=== PATIENT | male | born 1945 | race Caucasian/White ===

== ENCOUNTER 2016-08-13 13:12 | Outpatient (CLI) | payer MEDICARE, OTHER ==
--- NOTE | 2016-08-13 14:42 | Mammography Report ---
Bilateral diagnostic mammogram and targeted left breast ultrasound. History: Palpable left breast mass approximately one week after trauma to the left breast. Findings: There is moderate fibroglandular tissue bilaterally. In the subareolar left breast, there is an ovoid shaped circumscribed density which measures 2.5 cm in maximum dimension. There no suspicious microcalcifications. Sonographic evaluation of this area demonstrates a complex ovoid shaped mass measuring 2.6 x 1.3 cm x 2 cm corresponding to the size and location of the mammographic density. This is circumscribed with increased through transmission in the superior component of the mass. There is no acoustic shadowing. Impression: Complex left breast mass which has benign imaging features and most likely represents a hematoma, consistent with the patient's clinical history. BI-RADS code: 2. Recommendation: If clinically warranted, a followup left breast ultrasound could be performed.
== END 2016-08-13 13:13 | disposition home or self-care (01) ==
LOC: SPVWC 13:12
PROVIDERS: ATTEND Family Medicine
DX: N63 Unspecified lump in breast (principal); S29.9XXD Unspecified injury of thorax, subsequent encounter; X58.XXXD Exposure to other specified factors, subsequent encounter
CPT/HCPCS: 76642; G0204; 77066

== ENCOUNTER 2016-12-23 20:05 | Emergency (ER) | payer MEDICARE, OTHER ==
[2016-12-23] MEDS ORDERED: DELTASONE PO ONE (23:06)
[2016-12-23] MEDS ORDERED: BENADRYL IM ONE (23:08)
--- NOTE | 2016-12-23 23:17 | Emergency Department Report ---
HPI - General Chief Complaint: Animal Bite Time Seen by Provider: 12/23/16 23:03 - HPI HPI: Patient is a 71-year-old male with past medical history of hypertension and diabetes controlled with medication who presents to ED complaining of insect bite times a day. Patient states he was out in the yard cutting some grass when he felt something bite him on his left knee. Patient states he continued working and did not see whatever bit him patient states he started to experience some throbbing burning-like sensation on his knee shortly after the incident. Patient states he noticed his knee shortly after that. ED Past Medical Hx - Past Medical History Previous Medical History?: Yes Hx Diabetes: Yes - Surgical History Past Surgical History?: Yes Additional Surgical History: ONE HEART STENT - Social History Smoking Status: Former Smoker Substance Use Type: Alcohol - Medications Home Medications: Home Medications Medication Instructions Recorded Confirmed Last Taken Type Cephalexin [Keflex] 250 mg PO BID #6 capsule 12/23/16 Unknown Rx diphenhydrAMINE [Benadryl CAP] 25 mg PO QHS PRN #12 capsule 12/23/16 Unknown Rx ED Review of Systems ROS: Stated complaint: SNAKE BITE/LEFT KNEE Other details as noted in HPI Constitutional: denies: chills, fever Eyes: denies: eye pain, eye discharge, vision change ENT: denies: ear pain, throat pain Respiratory: denies: cough, shortness of breath, wheezing Cardiovascular: denies: chest pain, palpitations Endocrine: no symptoms reported Gastrointestinal: denies: abdominal pain, nausea, vomiting, diarrhea Genitourinary: denies: urgency, dysuria Musculoskeletal: denies: back pain, joint swelling, arthralgia Skin: denies: rash, lesions Neurological: denies: headache, weakness, paresthesias Psychiatric: denies: anxiety, depression Hematological/Lymphatic: denies: easy bleeding, easy bruising Physical Exam - Physical Exam Vital Signs: Vital Signs 12/23/16 20:24 Temperature 97.4 F L Pulse Rate 86 Respiratory 20 Rate Blood Pressure 119/72 O2 Sat by Pulse 95 Oximetry Physical Exam: GENERAL: Alert and oriented x3, no apparent distress, Normal Gait, atraumatic. HEAD: Head is normocephalic and a-traumatic. MOUTH:Mouth is well hydrated and without lesions. Tonsils nonerythematous or swollen, Uvula midline, Tongue not elevated. Mucous membranes are moist. Posterior pharynx clear, no exudate or lesions. Patent airways. LUNGS: Symetrical with respiration, No wheezing, no rales or crackles, CTAB. HEART: S1, S2 present, regular rate and rhythm without murmur, no rubs, no gallops. Non tender to palpation EXTREMITIES/MUSCULOSKELETAL: No cyanosis, clubbing, rash, lesions or edema. Full ROM bilaterally. UE/LE Pulses 2+ bilaterally. Knee joints are intact bilaterally. Mild saline diabetes, erythematous, nonswollen, nontender lesion seen on Deisi consistent with mild insect bite SKIN: Warm and dry, No lesions, No ulceration or induration present. ED Course Vital Signs 12/23/16 20:24 Temperature 97.4 F L Pulse Rate 86 Respiratory 20 Rate Blood Pressure 119/72 O2 Sat by Pulse 95 Oximetry ED Medical Decision Making - Medical Decision Making 71-year-old male presents with insect bite of left knee ED course: Patient received Benadryl and prednisone Discussed the patient follow up with primary care physician in 3-5 days. Patient is in no acute distress he understands instructions given Discussed if worsening symptoms to return to the ED. Patient states he has some 800 Motrin and ask if he could take that for pain . I discussed the patient exhibited take Motrin as needed for pain Critical care attestation.: If time is entered above; I have spent that time in minutes in the direct care of this critically ill patient, excluding procedure time. ED Disposition Clinical Impression: Insect bite Qualifiers: Encounter type: initial encounter Qualified Code(s): W57.XXXA - Bitten or stung by nonvenomous insect and other nonvenomous arthropods, initial encounter Disposition: DC-01 TO HOME OR SELFCARE Is pt being admited?: No Does the pt Need Aspirin: No Condition: Stable Instructions: Insect Bite or Sting (ED), Cellulitis (ED) Additional Instructions: take your Motrin 800 as needed for pain Symptoms worsen return to ED Follow-up with your primary care physician 3-5 days Prescriptions: diphenhydrAMINE [Benadryl CAP] 25 mg PO QHS PRN #12 capsule PRN Reason: Allergic Reaction Cephalexin [Keflex] 250 mg PO BID #6 capsule Referrals: AILYN RIOS PA [Primary Care Provider] - 3-5 Days Forms: Accompanied Note, Work/School Release Form(ED) Time of Disposition: 23:26
[2016-12-24 00:01] VITALS: BP 135/80
== END 2016-12-24 | disposition home or self-care (01) ==
LOC: ED 20:05
DX: S80.262A Insect bite (nonvenomous), left knee, initial encounter (principal); W57.XXXA Bitten or stung by nonvenomous insect and other nonvenomous arthropods, initial encounter; Y93.9 Activity, unspecified; Y92.9 Unspecified place or not applicable; Y99.9 Unspecified external cause status
CPT/HCPCS: 96372; 99282; J1200; J7512